=== PATIENT | male | born 1990 | race Caucasian/White ===

== ENCOUNTER → 2018-01-13 18:29 | Emergency (ER) | payer SELFPAY ==
[~2018-01-13 18:29] MED LIST: Cephalexin CAP* 500 MG PO ONE
--- NOTE | 2018-01-13 21:13 | ED ---
Lower Extremity - HPI Summary HPI Summary: This patient is a 27 year old M presenting to [facility] accompanied by his girlfriend with a chief complaint of 10/10 L foot pain since [employer]. Pt notes he is unable to bear weight, and has DROM secondary to pain. This AM he awoke with medial calf muscle spasms, paresthesia. NKDA. - History of Current Complaint Chief Complaint: EDExtremityLower Stated Complaint: LT FOOT INJURY Time Seen by Provider: 01/13/18 20:59 Hx Obtained From: Patient Mechanism Of Injury: Unknown Onset of Pain: Prior to Arrival Onset/Duration: Still Present Severity Initially: Moderate Severity Currently: Severe Pain Intensity: 10 Pain Scale Used: 0-10 Numeric Timing: Constant Location: Is Discrete @ - L foot, radiating up as spasms to calf Character Of Pain: Sharp, Spasmodic Associated Signs And Symptoms: Positive: Swelling, Redness. Negative: Fever Aggravating Factor(s): Movement, Weight Bearing Alleviating Factor(s): Nothing Able to Bear Weight: No - Allergies/Home Medications Allergies/Adverse Reactions: Allergies Allergy/AdvReac Type Severity Reaction Status Date / Time No Known Allergies Allergy Verified 01/13/18 18:32 PMH/Surg Hx/FS Hx/Imm Hx Endocrine/Hematology History: Denies: Hx Sickle Cell Disease GI History: Denies: Hx Ileostomy Sensory History: Denies: Hx Legally Blind, Hx Deafness Opthamlomology History: Denies: Hx Legally Blind EENT History: Denies: Hx Deafness Psychiatric History: Denies: Hx Autism - Immunization History Immunizations Up to Date: Yes Infectious Disease History: No Infectious Disease History: Denies: Traveled Outside the [place] in Last 30 Days - Family History Known Family History: Positive: Non-Contributory Negative: Blood Disorder - Social History Occupation: Employed Full-time Alcohol Use: Occasionally Substance Use Type: Reports: Heroin Substance Use Comment - Amount & Last Used: 3-4 times daily Smoking Status (MU): Heavy Every Day Tobacco Smoker Review of Systems Negative: Fever Positive: no symptoms reported Positive: Myalgia - L foot, L medial calf, Decreased ROM, Edema Positive: Rash - erythematous L dorsal foot All Other Systems Reviewed And Are Negative: Yes Physical Exam - Summary Physical Exam Summary: Appearance: The patient is well-nourished in no acute distress and in no acute pain. Skin: The skin is warm and dry and skin color reflects adequate perfusion. Cellulitis between 2nd and 3rd toe, dorsum of foot is swollen and mildly erythematous. HEENT: The head is normocephalic and atraumatic. The pupils are equal and reactive. The conjunctivae are clear and without drainage. Nares are patent and without drainage. Mouth reveals moist mucous membranes and the throat is without erythema and exudate. The external ears are intact. The ear canals are patent and without drainage. The tympanic membranes are intact. Neck: The neck is supple with full range of motion and non-tender. There are no carotid bruits. There is no neck vein distension. Respiratory: Chest is non-tender. Lungs are clear to auscultation and breath sounds are symmetrical and equal. Cardiovascular: Heart is regular rate and rhythm. There is no murmur or rub auscultated. There is no peripheral edema and pulses are symmetrical and equal. Abdomen: The abdomen is soft and non-tender. There are normal bowel sounds heard in all four quadrants and there is no organomegaly palpated. Musculoskeletal: There is no back tenderness noted. Extremities are non-tender with full range of motion. There is good capillary refill. There is no peripheral edema or calf tenderness elicited. Cellulitis between 2nd and 3rd toe , dorsum of foot is swollen and mildly erythematous. Neurological: Patient is alert and oriented to person, place and time. The patient has symmetrical motor strength in all four extremities. Cranial nerves are grossly intact. Deep tendon reflexes are symmetrical and equal in all four extremities. Psychiatric: The patient has an appropriate affect and does not exhibit any anxiety or depression. Triage Information Reviewed: Yes Vital Signs On Initial Exam: Initial Vitals Temp Pulse Resp BP Pulse Ox 98.8 F 81 16 133/78 95 01/13/18 18:31 01/13/18 18:31 01/13/18 18:31 01/13/18 18:31 01/13/18 18:31 Vital Signs Reviewed: Yes Diagnostics - Vital Signs Vital Signs Temp Pulse Resp BP Pulse Ox 01/13/18 19:50 98.5 F 62 16 101/55 96 01/13/18 18:31 98.8 F 81 16 133/78 95 - Laboratory Lab Statement: Any lab studies that have been ordered have been reviewed, and results considered in the medical decision making process. Lower Extremity Course/Dx - Course Course Of Treatment: Mr. Randolph noticed some swelling and irritation to his left foot starting yesterday and during the night last night it became much more painful. On exam he clearly has a cellulitis that looks like it originates between his second and third toe and includes the dorsum of the foot. There is no sign of tenosynovitis. He has mild athlete's foot and cracking between his toes which is likely the source. Emergency room antibiotics at this time and recommend follow-up to deal with the tinea. - Diagnoses Provider Diagnoses: Cellulitis of foot Discharge - Sign-Out/Discharge Documenting (check all that apply): Patient Departure - discharge - Discharge Plan Condition: Stable Disposition: HOME Prescriptions: Cephalexin CAP* [Keflex 500 CAP*] 500 mg PO QID #30 cap traMADol TAB* [Ultram*] 50 mg PO Q6HR PRN #20 tab MDD 4 PRN Reason: Pain Patient Education Materials: Cellulitis (ED) Forms: *Work Release Referrals: [facility] [Provider Group] Additional Instructions: Follow up with [facility] in 2-3 days. Return to the emergency department for any new or worsening symptoms. - Billing Disposition and Condition Condition: STABLE Disposition: Home - Attestation Statements Document Initiated by [employer]: Yes Documenting Scribe: Giancarlo Wheeler Provider For Whom Rocio is Documenting (Include Credential): Dr. Rodger Werner MD Scribe Attestation: Giancarlo Dumont scribed for Dr. Rodger Werner MD on 01/14/18 at 1244. Scribe Documentation Reviewed: Yes Provider Attestation: The documentation as recorded by the Giancarlo bueno accurately reflects the service I personally performed and the decisions made by me, Dr. Rodger Werner MD
[2018-01-13 21:30] VITALS: BP 104/69
== END | disposition home or self-care (01) ==
LOC: ED 18:29
DX: L03.116 Cellulitis of left lower limb (principal); F17.200 Nicotine dependence, unspecified, uncomplicated
CPT/HCPCS: 99282; A9270-GY